=== PATIENT | male | born 1985 | race Caucasian/White ===

== ENCOUNTER 2018-04-04 18:42 | Emergency (ER) | payer OTHER ==
--- NOTE | 2018-04-04 20:02 | ER ---
Nurse's Notes [facility] Name: Richard Kowalski Age: 32 yrs Sex: Male : 1985 Arrival Date: 04/04/2018 Time: 18:46 Bed 11 Private MD: None, None Diagnosis: Skin lesion of medial aspect of left tibia. Presentation: 04/04 19:11 Presenting complaint: Patient states: that he has some sores to left lower leg and foot fc that he noticed a couple of days ago. Areas are red and tender. Transition of care: patient was not received from another setting of care. Onset of symptoms was April 02, 2018. Risk Assessment: Do you want to hurt yourself or someone else? Patient reports no desire to harm self or others. Initial Sepsis Screen: Does the patient meet any 2 criteria? No. Patient's initial sepsis screen is negative. Does the patient have a suspected source of infection? No. Patient's initial sepsis screen is negative. Care prior to arrival: Medication(s) given: GIO to areas. 19:11 Method Of Arrival: Ambulatory fc 19:11 Acuity: TITUS 4 fc Historical: - Allergies: 19:14 Dilaudid; fc - Home Meds: 19:14 None [Active]; fc - PMHx: 19:14 None; fc - PSHx: 19:14 foot surg; fc - Immunization history:: Last tetanus immunization: up to date. - Social history:: Smoking status: Patient uses tobacco products, smokes one pack cigarettes per day. Patient/guardian denies using alcohol, street drugs. - Ebola Screening: : Patient negative for fever greater than or equal to 101.5 degrees Fahrenheit, and additional compatible Ebola Virus Disease symptoms Patient denies exposure to infectious person Patient denies travel to an Ebola-affected area in the 21 days before illness onset. Screenin:25 Abuse screen: Denies threats or abuse. Denies injuries from another. Nutritional aj1 screening: No deficits noted. Tuberculosis screening: No symptoms or risk factors identified. 20:14 Fall Risk None identified. aj1 Assessment: 19:25 General: Appears in no apparent distress. comfortable, Behavior is calm, cooperative, aj1 appropriate for age. Pain: Complains of pain in right leg Pain does not radiate. Neuro: Level of Consciousness is awake, alert, obeys commands. Cardiovascular: Patient's skin is warm and dry. Respiratory: Airway is patent Respiratory effort is even, unlabored, Respiratory pattern is regular, symmetrical. GI: No signs and/or symptoms were reported involving the gastrointestinal system. : No signs and/or symptoms were reported regarding the genitourinary system. EENT: No signs and/or symptoms were reported regarding the EENT system. Derm: Abscess located on right foot and lateral aspect of right calf has purulent drainage. Musculoskeletal: No signs and/or symptoms reported regarding the musculoskeletal system. Circulation, motion, and sensation intact. 20:14 Reassessment: Patient appears in no apparent distress at this time. No changes from aj1 previously documented assessment. Patient and/or family updated on plan of care and expected duration. Pain level reassessed. Patient is alert, oriented x 3, equal unlabored respirations, skin warm/dry/pink. Vital Signs: 19:14 BP 124 / 94; Pulse 79; Resp 20; Temp 98.4(TE); Pulse Ox 97% on R/A; Weight 113.4 kg fc (R); Height 5 ft. 9 in. (175.26 cm) (R); Pain 7/10; 20:14 Pulse 82; Resp 18; Pulse Ox 99% ; aj1 19:14 Body Mass Index 36.92 (113.40 kg, 175.26 cm) ED Course: 18:46 Patient arrived in ED. mr 18:46 None, None is Private Physician. mr 19:13 Triage completed. fc 19:14 Arm band placed on Patient placed in an exam room, on a stretcher. 19:16 Melodie Chandra, RN is Primary Nurse. aj1 19:25 Patient has correct armband on for positive identification. Call light in reach. aj1 19:25 No provider procedures requiring assistance completed. aj1 19:32 Bang Mcqueen MD is Attending Physician. ps1 20:15 Patient did not have IV access during this emergency room visit. aj1 Administered Medications: No medications were administered Point of Care Testing: Blood Glucose: 20:12 Blood Glucose: 74 mg/dL; aj1 Ranges: Outcome: 20:01 Discharge ordered by . ps1 20:15 Discharged to home ambulatory. aj1 20:15 Condition: good 20:15 Discharge instructions given to patient, Instructed on discharge instructions, follow up and referral plans. medication usage, Demonstrated understanding of instructions, follow-up care, medications, Prescriptions given X 2. 20:15 Patient left the ED. aj1 Signatures: Melodie Chandra RN RN [email or web address] Kerri Baldwin Felicia, RN RN Bang Mcqueen MD MD ps1
--- NOTE | 2018-04-04 20:02 | EDPHYS ---
Physician Documentation [facility] Name: Richard Kowalski Age: 32 yrs Sex: Male : 1985 Arrival Date: 04/04/2018 Time: 18:46 Bed 11 Private MD: None, None ED Physician Bang Mcqueen HPI: 04/04 19:52 This 32 yrs old Male presents to ER via Ambulatory with complaints of ps1 Abscess/cellulitis. 19:52 The patient presents with cellulitis of the left king. patient appears to have multiple ps1 erythematous lesion with mild cellulitic or erythematous changes. Appears to be in multiple stages of healing. States that the lesion is itchy and he scratched it and it is not healing and had some white/yellow discharge from the wound. . 19:56 Severity of symptoms: At their worst the symptoms were mild. ps1 Historical: - Allergies: 19:14 Dilaudid; fc - Home Meds: 19:14 None [Active]; fc - PMHx: 19:14 None; fc - PSHx: 19:14 foot surg; fc - Immunization history:: Last tetanus immunization: up to date. - Social history:: Smoking status: Patient uses tobacco products, smokes one pack cigarettes per day. Patient/guardian denies using alcohol, street drugs. - Ebola Screening: : Patient negative for fever greater than or equal to 101.5 degrees Fahrenheit, and additional compatible Ebola Virus Disease symptoms Patient denies exposure to infectious person Patient denies travel to an Ebola-affected area in the 21 days before illness onset. ROS: 19:56 Constitutional: Negative for fever, chills, and weight loss, Eyes: Negative for injury, ps1 pain, redness, and discharge, Cardiovascular: Negative for chest pain, palpitations, and edema, Respiratory: Negative for shortness of breath, cough, wheezing, and pleuritic chest pain, Abdomen/GI: Negative for abdominal pain, nausea, vomiting, diarrhea, and constipation, Back: Negative for injury and pain, MS/Extremity: Negative for injury and deformity. 19:56 Skin: Positive for lesions. Exam: 19:56 Constitutional: This is a well developed, well nourished patient who is awake, alert, ps1 and in no acute distress. Head/Face: Normocephalic, atraumatic. Eyes: Pupils equal round and reactive to light, extra-ocular motions intact. Lids and lashes normal. Conjunctiva and sclera are non-icteric and not injected. Chest/axilla: Normal chest wall appearance and motion. Nontender with no deformity. No lesions are appreciated. Cardiovascular: Regular rate and rhythm. No gallops, murmurs, or rubs. Normal PMI, no JVD. No pulse deficits. Respiratory: Lungs have equal breath sounds bilaterally, clear to auscultation and percussion. No rales, rhonchi or wheezes noted. No increased work of breathing, no retractions or nasal flaring. Abdomen/GI: Soft, non-tender, with normal bowel sounds. No distension or tympany. No guarding or rebound. No evidence of tenderness throughout. 19:56 Skin: lesion(s), noted, and can be described as erythematous, raised, tender, ulcerated, located on the left leg. Vital Signs: 19:14 BP 124 / 94; Pulse 79; Resp 20; Temp 98.4(TE); Pulse Ox 97% on R/A; Weight 113.4 kg fc (R); Height 5 ft. 9 in. (175.26 cm) (R); Pain 7/10; 20:14 Pulse 82; Resp 18; Pulse Ox 99% ; aj1 19:14 Body Mass Index 36.92 (113.40 kg, 175.26 cm) fc MDM: 19:58 Data reviewed: vital signs, nurses notes. ED course: patient states that he does not ps1 abuse IV drugs although the lesions follow veins in lower extremities. He states that he is not a diabetic although has not had a physical in over 2 years. . 20:01 Patient medically screened. ps1 04/04 20:04 Order name: Blood Sugar; Complete Time: 20:11 ps1 Administered Medications: No medications were administered Point of Care Testing: Blood Glucose: 20:12 Blood Glucose: 74 mg/dL; aj1 Ranges: Critical Glucose Levels:Adult <50 mg/dl or >400 mg/dl <40 mg/dl or >180 mg/dl Disposition: 04/04/18 20:01 Discharged to Home. Impression: Skin lesion of medial aspect of left tibia. . - Condition is Stable. - Discharge Instructions: Cellulitis, [id number]. - Prescriptions for Clindamycin HCl 300 mg Oral Capsule - take 1 capsule by ORAL route every 6 hours for 10 days; 40 capsule. Hydroxyzine HCl 25 mg Oral Tablet - take 1 tablet by ORAL route every 6 hours As needed; 30 tablet. - Medication Reconciliation Form, Thank You Letter, Antibiotic Education, Prescription Opioid Use form. - Follow up: Private Physician; When: As needed; Reason: Fever > 102 F, Recheck today's complaints, Continuance of care, Re-evaluation by your physician. Follow up: Emergency Department; When: As needed; Reason: Fever > 102 F, Trouble breathing, Worsening of condition. - Problem is new. - Symptoms are unchanged. Signatures: Melodie Chandra RN RN aj1 Shante Mayo RN RN Bang Mcqueen MD MD ps1 Corrections: (The following items were deleted from the chart) 19:57 19:52 patient appears to have multiple erythematous lesion with mild cellulitic or ps1 erythematous changes. Appears to be in multiple stages of healing. ps1 20:15 20:01 04/04/2018 20:01 Discharged to Home. Impression: Skin lesion of medial aspect of aj1 left tibia. . Condition is Stable. Forms are Medication Reconciliation Form, Thank You Letter, Antibiotic Education, Prescription Opioid Use. Follow up: Private Physician; When: As needed; Reason: Fever > 102 F, Recheck today's complaints, Continuance of care, Re-evaluation by your physician. Follow up: Emergency Department; When: As needed; Reason: Fever > 102 F, Trouble breathing, Worsening of condition. Problem is new. Symptoms are unchanged. ps1
== END 2018-04-04 20:15 | disposition home or self-care (01) ==
LOC: ER 18:42
DX: L03.116 Cellulitis of left lower limb (principal); F17.210 Nicotine dependence, cigarettes, uncomplicated; Z88.6 Allergy status to analgesic agent
CPT/HCPCS: 82962; 99282